=== PATIENT | female | born 1955 | race Caucasian/White ===

== ENCOUNTER 2021-12-09 08:00 | Outpatient (CLI) | payer OTHER ==
[~2021-12-09 08:00] MED LIST: METFORMIN HCL500 M3; TRICOR
== END 2021-12-09 08:30 | disposition home or self-care (01) ==
LOC: PPH VACUNA 08:00
PROVIDERS: ATTEND Emergency Medicine Pediatric Emergency Medicine
DX: Z23 Encounter for immunization (principal)

== ENCOUNTER 2021-12-25 14:27 | Outpatient (CLI) | payer OTHER | END 2021-12-25 14:29 | disposition home or self-care (01) | LOC: MAMO-SONO 14:27 | PROVIDERS: ATTEND Internal Medicine | DX: Z12.31 Encounter for screening mammogram for malignant neoplasm of breast (principal) ==

== ENCOUNTER → 2022-01-06 11:19 | Outpatient (CLI) | payer OTHER | END | disposition home or self-care (01) | LOC: NUCLEAR 11:15 | PROVIDERS: ATTEND Internal Medicine | DX: M81.0 Age-related osteoporosis without current pathological fracture (principal) ==

== ENCOUNTER 2022-01-23 12:43 | Outpatient (CLI) | payer OTHER | END 2022-01-23 12:56 | disposition home or self-care (01) | LOC: SONOGRAMA 12:43 | PROVIDERS: ATTEND Internal Medicine | DX: Z12.31 Encounter for screening mammogram for malignant neoplasm of breast (principal); Z13.820 Encounter for screening for osteoporosis; N60.11 Diffuse cystic mastopathy of right breast ==

== ENCOUNTER 2022-02-25 11:03 | Outpatient (CLI) | payer OTHER | END 2022-02-25 11:04 | disposition home or self-care (01) | LOC: RAD 11:03 | DX: M17.0 Bilateral primary osteoarthritis of knee (principal); M62.830 Muscle spasm of back ==

== ENCOUNTER 2022-11-18 09:18 | Outpatient (CLI) | payer OTHER | END 2022-11-18 09:23 | disposition home or self-care (01) | LOC: RAD 09:18 | PROVIDERS: ATTEND Physical Medicine & Rehabilitation | DX: J12.9 Viral pneumonia, unspecified (principal) ==

== ENCOUNTER → 2022-11-23 | Outpatient (CLI) | payer OTHER | END | disposition home or self-care (01) | LOC: TOM 11:50 | PROVIDERS: ATTEND Physical Medicine & Rehabilitation | DX: J15.7 Pneumonia due to Mycoplasma pneumoniae (principal); R91.8 Other nonspecific abnormal finding of lung field ==

== ENCOUNTER 2023-04-29 10:40 | Outpatient (CLI) | payer OTHER | END 2023-04-29 10:46 | disposition home or self-care (01) | LOC: MAMO-SONO 10:40 | PROVIDERS: ATTEND Pathology Anatomic Pathology & Clinical Pathology | DX: Z12.31 Encounter for screening mammogram for malignant neoplasm of breast (principal); N60.11 Diffuse cystic mastopathy of right breast ==

== ENCOUNTER 2023-10-11 08:39 | Outpatient (CLI) | payer OTHER | END 2023-10-11 08:45 | disposition home or self-care (01) | LOC: MAMO-SONO 08:39 | PROVIDERS: ATTEND Internal Medicine | DX: N60.11 Diffuse cystic mastopathy of right breast (principal); N60.12 Diffuse cystic mastopathy of left breast; Z12.31 Encounter for screening mammogram for malignant neoplasm of breast ==

== ENCOUNTER → 2024-02-19 13:07 | Outpatient (CLI) | payer OTHER ==
[~2024-02-19 13:07] MED LIST changes: +GLIMEPIRIDE1 M1 PO; +GLUMETZA1000 MG PO; +IPRAT-ALBUT 0.5-3 ML IH; +OMEGA 3 1,0001 EACH PO; +OSEL75CA PO; +SIMVASTATIN20 MG PO; +TUSNEL LIQUID178 ML PO
[2024-02-19 14:04] LABS: MYCOPLASMA PNEUMONIAE IGM NON REACTIVE (NO REACTIVE)
== END | disposition home or self-care (01) ==
LOC: LAB 13:07
PROVIDERS: ATTEND Physical Medicine & Rehabilitation
DX: Z20.822 Contact with and (suspected) exposure to COVID-19 (principal); A49.3 Mycoplasma infection, unspecified site; A49.2 Hemophilus influenzae infection, unspecified site

== ENCOUNTER 2024-07-10 10:25 | Emergency (ER) | payer OTHER ==
[~2024-07-10] VITALS: Ht 167.6 cm; Wt 86.2 kg
[2024-07-10 14:00] LABS: HEMATOCRIT 41.1 % (36.0-45.00); HEMOGLOBIN 14.2 g/dL (12.0-15.00); MEAN CELL VOLUME 90.5 fL (80.00-100.00); MEAN CORPUSCULAR HEMOGLOBIN 31.3 pg (27.00-32.0); MEAN CORPUSCULAR HGB CONC 34.6 g/dl (32.0-36.0); PLATELET COUNT 395 K/uL (150-450); RED BLOOD COUNT 4.54 M/uL (4.00-6.00); RED CELL DISTRIBUTION WIDTH 14.2 % (11.5-14.5)
[2024-07-10 14:19] LABS: CALCIUM 10.9 mg/dL (8.5-10.1); CREATININE SERUM 0.74 mg/dL (0.55-1.02); GFR 77.81; POTASSIUM 3.88 mEq/L (3.5-5.1)
[2024-07-10] MEDS ORDERED: AMOX1TAB5 PO (14:50)
[2024-07-10] MEDS ORDERED: NASAL MIST126 ML NASAL (14:50)
[2024-07-10] MEDS ORDERED: BENZONATATE200 M1 PO (14:51)
[2024-07-10] MEDS ORDERED: SINGULAIR10 MG PO (14:51)
== END 2024-07-10 15:03 | disposition home or self-care (01) ==
LOC: ER 10:27
PROVIDERS: General Practice
DX: J32.9 Chronic sinusitis, unspecified (principal); I10 Essential (primary) hypertension; E11.9 Type 2 diabetes mellitus without complications; Z79.84 Long term (current) use of oral hypoglycemic drugs; Z20.822 Contact with and (suspected) exposure to COVID-19

== ENCOUNTER 2024-10-05 13:41 | Outpatient (CLI) | payer OTHER ==
[~2024-10-05 13:41] MED LIST changes: +AMOX1TAB5 PO; +BENZONATATE200 M1 PO; +NASAL MIST126 ML NASAL; +SINGULAIR10 MG PO
== END 2024-10-05 13:43 | disposition home or self-care (01) ==
LOC: NUCLEAR 13:41
PROVIDERS: ATTEND Internal Medicine
DX: M81.0 Age-related osteoporosis without current pathological fracture (principal)

== ENCOUNTER 2024-10-26 15:07 | Outpatient (CLI) | payer OTHER | END 2024-10-26 15:13 | disposition home or self-care (01) | LOC: MAMO-SONO 15:07 | PROVIDERS: ATTEND Internal Medicine | DX: N60.11 Diffuse cystic mastopathy of right breast (principal); Z12.31 Encounter for screening mammogram for malignant neoplasm of breast ==